=== PATIENT | male | born 2000 | race Caucasian/White ===

== ENCOUNTER 2022-01-17 05:45 | Emergency (ER) | payer SELFPAY ==
[2022-01-17] MEDS ORDERED: Amoxicillin 500 MG Cap PO ONE (07:05)
== END 2022-01-17 07:15 | disposition home or self-care (01) ==
LOC: JD.ED 05:45
DX: H66.003 Acute suppurative otitis media without spontaneous rupture of ear drum, bilateral (principal)
CPT/HCPCS: 99283